=== PATIENT | male | born 1970 | race Two or more races ===

== ENCOUNTER 2022-12-25 23:40 | Inpatient (IN) | payer SELFPAY ==
[~2022-12-25] VITALS: Ht 177.8 cm; Wt 74.7 kg
[2022-12-26] VITALS (15 sets, daily range): BP systolic 142–155; BP diastolic 102–108; PULSE 99–130; RESP 15–27; TEMP 98; O2SAT 93–99
[2022-12-26] MEDS ORDERED: LORazepam 2MG/ML-1ML VIAL IV ONE (00:30)
[2022-12-26 00:46] LABS: Alanine Aminotransferase 117 U/L (7-40); Albumin 4.6 g/dL (3.2-4.8); Alkaline Phosphatase 91 U/L (46-116); Anion Gap 11.6 (5-15); Aspartate Aminotransferase 98 U/L (13-40); Bilirubin, Total 0.6 mg/dL (0.2-1.0); Calcium 8.8 mg/dL (8.5-10.1); Carbon Dioxide 21.4 mmol/L (20-30); Chloride 105 mmol/L (98-107); Glucose 138 mg/dL (74-106); Potassium 4.1 mmol/L (3.5-5.1); Sodium 138 mmol/L (136-145); Total Protein 7.5 g/dL (5.7-8.2)
[2022-12-26 00:47] LABS: Basophils # (auto) 0.1 10 ^3/uL (0-0.2); Basophils % (auto) 1.1 % (0.0-2.0); Eosinophils # (auto) 0.2 10 ^3/uL (0-0.8); Eosinophils % (auto) 2.5 % (0.0-7.0); Hematocrit 47.5 % (41.0-53.0); Hemoglobin 16.1 g/dL (13.5-17.5); Lymphocytes # (auto) 2.1 10 ^3/uL (0.4-5.4); Lymphocytes % (auto) 34.7 % (10.0-50.0); Mean Corpuscular Hemoglobin 36.9 pg (28.0-32.0); Mean Corpuscular Hgb Conc. 33.8 g/dL (32.0-36.0); Monocytes # (auto) 0.9 10 ^3/uL (0-1.3); Monocytes % (auto) 14.1 % (0.0-12.0); Neutrophils # (auto) 2.9 10 ^3/uL (1.6-8.6); Neutrophils % (auto) 47.6 % (37.0-80.0); Nucleated Red Blood Cells % 0.2 %; Red Blood Cells 4.36 10^6/uL (4.5-5.90); Red Cell Distribution Width 13.5 % (11.8-14.3); White Blood Cell 6.1 10^3/uL (4.4-10.8)
[2022-12-26 00:58] LABS: INR 1.02 (0.9-1.15); Partial Thromboplastin Time 28.1 SEC (24.5-34.5); Prothrombin Time 10.7 sec (9.3-11.8)
[2022-12-26 01:03] LABS: BUN/Creatinine Ratio 6.7 (10.0-20.0)
[2022-12-26 01:25] LABS: COVID19 ANTIGEN SOFIA FIA NEGATIVE (NEGATIVE)
[2022-12-26 01:33] LABS: Blood Urea Nitrogen < 5 mg/dL (9-23)
[2022-12-26] MEDS ORDERED: DexAMETHasone SOD PHOS 10MG/1ML VIAL INJ IV ONE (01:45)
[2022-12-26] MEDS: ALBUTEROL SULF 2.5 MG/0.5ML(0.5%) NEB SOLN NEB ONE (01:45)
[2022-12-26] MEDS ORDERED: AZITHROMYCIN 500MG/ 250ML 250 ML IV ONE ×2 (01:45→14:00)
[2022-12-26] MEDS: IPRATROPIUM BROM 0.5 MG/2.5ML INH SOL NEB ONE ×2 (01:45→02:37)
[2022-12-26] MEDS ORDERED: ALBUTEROL SULF 2.5 MG/0.5ML(0.5%) NEB SOLN NEB ONE (02:15)
[2022-12-26] MEDS ORDERED: LEVALBUTEROL HCL 1.25 MG/3 ML NEB NEB ONE (02:30)
[2022-12-26] MEDS ORDERED: SODIUM CHLORIDE 0.9% 1,000 ML IV ONE (03:12)
[2022-12-26] MEDS ORDERED: ADENOSINE 6 MG/2 ML INJ IV ONE (03:13)
[2022-12-26] MEDS ORDERED: LACTATED RINGER'S 1,000 ML IV ONE (03:15)
[2022-12-26] MEDS ORDERED: MAGNESIUM SULFATE 1GM/100ML 100 ML IV ONE (03:15)
[2022-12-26 04:09] LABS: Urine Bacteria NONE SEEN /hpf (None Seen); Urine Blood Negative /uL (Negative); Urine Clarity Clear (Clear); Urine Color Colorless (Yellow); Urine Protein, UAD Negative (Negative); Urine Specific Gravity 1.018 (1.001-1.035); Urine Urobilinogen Normal (Negative); Urine WBC <1 /hpf (0 - 3); Urine pH 5.5 (5.0-8.0)
[2022-12-26] MEDS ORDERED: InsuLIN R (HUMAN) 100 UNITS in SODIUM CHL 0.9% 99 ML IV SCH (05:00)
[2022-12-26] MEDS ORDERED: DEXTROSE (50%) 50ML SYRG IV PRN (05:00)
[2022-12-26 05:03] LABS: Base Excess -0.1 mmol/L (-2.0-2.0)
[2022-12-26] MEDS ORDERED: ALBUTEROL SULF 2.5 MG/0.5ML(0.5%) NEB SOLN NEB PRN (05:15)
[2022-12-26] MEDS ORDERED: ACETAMINOPHEN 325 MG TAB PO PRN (05:15)
[2022-12-26] MEDS ORDERED: NITROGLYCERIN 0.4 MG SL TAB SL PRN (05:15)
[2022-12-26] MEDS ORDERED: ONDANSETRON HCL 4 MG/2 ML VIAL IV PRN (05:15)
[2022-12-26] MEDS ORDERED: MORPHINE SULFATE INJ 2 MG/ml SYRG IV PRN (05:15)
[2022-12-26] MEDS ORDERED: ACCU-CHEK COMFORT CURVE STRIP VI SCH (06:00)
[2022-12-26] MEDS ORDERED: dilTIAZem 25 MG/5 ML VIAL IV ONE (06:45)
[2022-12-26] MEDS: guaiFENesin-DM 100/10mg/5ml SYR PO PRN ×2 (06:53→18:32)
[2022-12-26] MEDS ORDERED: METOPROLOL SUCCINATE XL 50 MG TAB PO SCH (10:00)
[2022-12-26] MEDS ORDERED: DexAMETHasone SOD PHOS 4 MG/1ML SDV INJ IV SCH (10:00)
[2022-12-26] MEDS: PANTOPRAZOLE 40 MG TAB PO SCH (10:14)
[2022-12-26] MEDS: ENOXAPARIN SOD 40 MG/0.4 ML SYRINGE SC SCH (10:14)
[2022-12-26] MEDS: IPRATROPIUM BROM 0.5 MG/2.5ML INH SOL NEB PRN ×2 (10:34→18:35)
[2022-12-26] MEDS ORDERED: IPRATROPIUM BROM 0.5 MG/2.5ML INH SOL NEB SCH (12:00)
[2022-12-26] MEDS ORDERED: HCTZ 25 MG TAB PO ONE (12:00)
[2022-12-26] MEDS ORDERED: ALBUTEROL SULF 2.5 MG/0.5ML(0.5%) NEB SOLN NEB SCH (12:00)
[2022-12-26] MEDS ORDERED: LOSARTAN POTASSIUM 50 MG TAB PO ONE (12:00)
[2022-12-26] MEDS ORDERED: ASPirin 81 mg TAB PO ONE (12:00)
[2022-12-26] MEDS ORDERED: hydrALAZINE HCL 20 MG/ML VL IV PRN (12:30)
[2022-12-26] MEDS: LEVALBUTEROL HCL 1.25 MG/3 ML NEB NEB SCH ×2 (12:34→18:34)
[2022-12-26] MEDS: LORazepam 2MG/ML-1ML VIAL IV PRN (12:45)
[2022-12-26 13:21] LABS: Amphetamine Screen, Urine Neg (NEGATIVE)
[2022-12-26 13:23] LABS: Barbiturate Scree,Urine Neg (NEGATIVE); Benzodiazephine Screen, Urine Neg (NEGATIVE); Cannabinoid Screen, Urine Pos (NEGATIVE); Cocaine Screen, Urine Neg (NEGATIVE); Opiate Scree,Urine Neg (NEGATIVE); Phencyclidine Screen, Urine Neg (NEGATIVE)
[2022-12-26 14:35] LABS: Magnesium 2.2 mg/dL (1.6-2.6)
[2022-12-26] MEDS: DexAMETHasone SOD PHOS 4 MG/1ML SDV INJ IV SCH ×2 (16:39→22:30)
[2022-12-26] MEDS ORDERED: AZITHROMYCIN 500MG/ 250ML 250 ML IV SCH (22:00)
[2022-12-26] MEDS ORDERED: ASCO500T11 PO (23:35)
[2022-12-26] MEDS ORDERED: PYRI1TAB10 PO (23:35)
[2022-12-26] MEDS ORDERED: CHOL20007 PO (23:35)
[2022-12-26] MEDS ORDERED: MAGN400T40 PO (23:35)
[2022-12-27] VITALS (18 sets, daily range): BP systolic 126–139; BP diastolic 90–99; PULSE 85–115; RESP 18–24; TEMP 97.2–98.3; O2SAT 92–100
[2022-12-27] MEDS: IPRATROPIUM BROM 0.5 MG/2.5ML INH SOL NEB PRN ×4 (00:17→17:55)
[2022-12-27] MEDS: LEVALBUTEROL HCL 1.25 MG/3 ML NEB NEB SCH ×5 (00:17→23:32)
[2022-12-27] MEDS: LORazepam 2MG/ML-1ML VIAL IV PRN ×2 (02:26→16:03)
[2022-12-27] MEDS: DexAMETHasone SOD PHOS 4 MG/1ML SDV INJ IV SCH ×4 (04:20→21:21)
[2022-12-27 06:16] LABS: Basophils # (auto) 0 10 ^3/uL (0-0.2); Basophils % (auto) 0.1 % (0.0-2.0); Eosinophils # (auto) 0 10 ^3/uL (0-0.8); Hematocrit 44.9 % (41.0-53.0); Hemoglobin 15.7 g/dL (13.5-17.5); Lymphocytes # (auto) 0.5 10 ^3/uL (0.4-5.4); Lymphocytes % (auto) 8.1 % (10.0-50.0); Mean Corpuscular Hemoglobin 37.1 pg (28.0-32.0); Mean Corpuscular Hgb Conc. 34.9 g/dL (32.0-36.0); Mean Corpuscular Volume 106.4 fL (80.0-100.0); Monocytes # (auto) 0.7 10 ^3/uL (0-1.3); Monocytes % (auto) 10.8 % (0.0-12.0); Neutrophils # (auto) 5.2 10 ^3/uL (1.6-8.6); Red Blood Cells 4.22 10^6/uL (4.5-5.90); Red Cell Distribution Width 13.6 % (11.8-14.3); White Blood Cell 6.4 10^3/uL (4.4-10.8)
[2022-12-27 06:30] LABS: Alanine Aminotransferase 75 U/L (7-40); Albumin 4.2 g/dL (3.2-4.8); Alkaline Phosphatase 79 U/L (46-116); Anion Gap 10.5 (5-15); Aspartate Aminotransferase 33 U/L (13-40); Carbon Dioxide 24.5 mmol/L (20-30); Chloride 99 mmol/L (98-107); Glucose 132 mg/dL (74-106); Potassium 3.7 mmol/L (3.5-5.1); Sodium 134 mmol/L (136-145)
[2022-12-27 06:31] LABS: Bilirubin, Total 0.9 mg/dL (0.2-1.0)
[2022-12-27 06:34] LABS: BUN/Creatinine Ratio 7.8 (10.0-20.0); Blood Urea Nitrogen < 5 mg/dL (9-23)
[2022-12-27] MEDS: AZITHROMYCIN 500MG/ 250ML 250 ML IV SCH (09:16)
[2022-12-27] MEDS: PANTOPRAZOLE 40 MG TAB PO SCH (09:17)
[2022-12-27] MEDS: ASPirin 81 mg TAB PO SCH (09:17)
[2022-12-27] MEDS: dilTIAZem 120MG ER CAP PO SCH (09:17)
[2022-12-27] MEDS: HCTZ 25 MG TAB PO SCH (09:18)
[2022-12-27] MEDS: LOSARTAN POTASSIUM 50 MG TAB PO SCH (09:18)
[2022-12-27] MEDS: ENOXAPARIN SOD 40 MG/0.4 ML SYRINGE SC SCH (09:19)
[2022-12-27 10:35] LABS: Hepatitis B Surface Antigen Negative (Negative)
[2022-12-27 10:56] LABS: Hepatitis C Antibody Negative (Negative)
[2022-12-27 13:01] LABS: Base Excess 1.8 mmol/L (-2.0-2.0)
[2022-12-28] VITALS (11 sets, daily range): BP systolic 114–132; BP diastolic 86–98; PULSE 92–124; RESP 15–24; TEMP 97.9–98.9; O2SAT 93–99
[2022-12-28] MEDS: IPRATROPIUM BROM 0.5 MG/2.5ML INH SOL NEB PRN ×3 (03:57→11:34)
[2022-12-28] MEDS: LEVALBUTEROL HCL 1.25 MG/3 ML NEB NEB SCH ×2 (03:57→11:34)
[2022-12-28] MEDS: guaiFENesin-DM 100/10mg/5ml SYR PO PRN (04:09)
[2022-12-28] MEDS: DexAMETHasone SOD PHOS 4 MG/1ML SDV INJ IV SCH ×3 (04:09→16:34)
[2022-12-28] MEDS: LORazepam 2MG/ML-1ML VIAL IV PRN ×2 (04:10→16:34)
[2022-12-28 07:00] LABS: Basophils # (auto) 0 10 ^3/uL (0-0.2); Basophils % (auto) 0.1 % (0.0-2.0); Eosinophils # (auto) 0 10 ^3/uL (0-0.8); Hemoglobin 16.3 g/dL (13.5-17.5); Lymphocytes # (auto) 0.5 10 ^3/uL (0.4-5.4); Lymphocytes % (auto) 7.4 % (10.0-50.0); Mean Corpuscular Hemoglobin 36.2 pg (28.0-32.0); Mean Corpuscular Hgb Conc. 33.9 g/dL (32.0-36.0); Mean Corpuscular Volume 106.8 fL (80.0-100.0); Monocytes # (auto) 0.6 10 ^3/uL (0-1.3); Monocytes % (auto) 8.2 % (0.0-12.0); Neutrophils # (auto) 6.2 10 ^3/uL (1.6-8.6); Neutrophils % (auto) 84.3 % (37.0-80.0); Red Blood Cells 4.49 10^6/uL (4.5-5.90); Red Cell Distribution Width 13.6 % (11.8-14.3); White Blood Cell 7.4 10^3/uL (4.4-10.8)
[2022-12-28 07:04] LABS: Calcium 9.5 mg/dL (8.7-10.4); Chloride 97 mmol/L (98-107); Potassium 3.6 mmol/L (3.5-5.1); Sodium 132 mmol/L (136-145)
[2022-12-28 07:05] LABS: Anion Gap 9.6 (5-15); Carbon Dioxide 25.4 mmol/L (20-30)
[2022-12-28 07:10] LABS: BUN/Creatinine Ratio 9.1 (10.0-20.0); Blood Urea Nitrogen 7 mg/dL (9-23); Glucose 144 mg/dL (74-106)
[2022-12-28] MEDS: AZITHROMYCIN 500MG/ 250ML 250 ML IV SCH (09:46)
[2022-12-28] MEDS: ENOXAPARIN SOD 40 MG/0.4 ML SYRINGE SC SCH (09:47)
[2022-12-28] MEDS: dilTIAZem 120MG ER CAP PO SCH (09:47)
[2022-12-28] MEDS: ASPirin 81 mg TAB PO SCH (09:48)
[2022-12-28] MEDS: PANTOPRAZOLE 40 MG TAB PO SCH (09:48)
[2022-12-28] MEDS: HCTZ 25 MG TAB PO SCH (09:48)
[2022-12-28] MEDS: LOSARTAN POTASSIUM 50 MG TAB PO SCH (09:48)
[2022-12-28] MEDS ORDERED: LOSA50TA46 PO (10:08)
[2022-12-28] MEDS ORDERED: PRED20TA2 PO (10:08)
[2022-12-28] MEDS ORDERED: DILT-29 PO (10:08)
[2022-12-28] MEDS ORDERED: AZIT500T66 PO (10:09)
[2022-12-28] MEDS ORDERED: IPR002IS NEB (12:01)
== END 2022-12-28 16:56 | disposition home or self-care (01) | DRG 189 ==
LOC: EDBD 23:40 → ER 23:45 → TELE 12-26 05:12 → TELE-CENTR 12-26 22:31
PROVIDERS: ADMIT Nurse Practitioner; ATTEND Internal Medicine Pulmonary Disease
DX: J96.21 Acute and chronic respiratory failure with hypoxia (principal); I47.1 Supraventricular tachycardia; J44.1 Chronic obstructive pulmonary disease with (acute) exacerbation; I10 Essential (primary) hypertension; I16.0 Hypertensive urgency; K76.0 Fatty (change of) liver, not elsewhere classified; F41.9 Anxiety disorder, unspecified; Z20.822 Contact with and (suspected) exposure to COVID-19; Z91.199 Patient's noncompliance with other medical treatment and regimen due to unspecified reason
CPT/HCPCS: 36415; 36600; 71045; 71275; 80048; 80053; 80061; 80307; 81001; 82805; 83036; 83735; 83880; 84443; 84484; 85025; 85610; 85730; 86803; 87340; 87426; 93005; 93306; 94640; 96365; 96367; 96372; 96375; 99291; G0378; J0153; J1100; J1815

== ENCOUNTER 2022-12-31 23:47 | Inpatient (IN) | payer SELFPAY ==
[~2022-12-31] VITALS: Ht 177.8 cm; Wt 80.9 kg
[~2022-12-31 23:47] MED LIST: ASCO500T11 PO; AZIT500T66 PO; CHOL20007 PO; DILT-29 PO; IPR002IS NEB; LOSA50TA46 PO; MAGN400T40 PO; PRED20TA2 PO; PYRI1TAB10 PO
[2023-01-01] VITALS (7 sets, daily range): BP systolic 114–129; BP diastolic 84–93; PULSE 77–122; RESP 18–23; TEMP 97.9–99.9; O2SAT 89–94
[2023-01-01] MEDS ORDERED: IPRATROPIUM BROM 0.5 MG/2.5ML INH SOL NEB ONE (00:15)
[2023-01-01] MEDS ORDERED: ALBUTEROL SULF 2.5 MG/0.5ML(0.5%) NEB SOLN NEB ONE (00:15)
[2023-01-01] MEDS ORDERED: methylPREDNISolone SOD SUCC 40 MG/ML VL IV ONE (00:15)
[2023-01-01] MEDS ORDERED: VANCOMYCIN 1GM/250ML 250 ML IV ONE (00:15)
[2023-01-01] MEDS ORDERED: CEFEPIME 1GM/ 50ML 50 ML IV ONE (00:15)
[2023-01-01] MEDS ORDERED: LEVALBUTEROL HCL 1.25 MG/3 ML NEB NEB ONE (01:00)
[2023-01-01 01:51] LABS: Basophils # (auto) 0 10 ^3/uL (0-0.2); Eosinophils # (auto) 0 10 ^3/uL (0-0.8); Lymphocytes # (auto) 1.4 10 ^3/uL (0.4-5.4); Monocytes # (auto) 1.3 10 ^3/uL (0-1.3); Neutrophils # (auto) 6.6 10 ^3/uL (1.6-8.6); Red Cell Distribution Width 12.8 % (11.8-14.3)
[2023-01-01 01:54] LABS: Eosinophils % (auto) 0.1 % (0.0-7.0); Hematocrit 45.8 % (41.0-53.0); Hemoglobin 15.9 g/dL (13.5-17.5); Lymphocytes % (auto) 14.9 % (10.0-50.0); Mean Corpuscular Hgb Conc. 34.6 g/dL (32.0-36.0); Mean Corpuscular Volume 106.8 fL (80.0-100.0); Monocytes % (auto) 13.7 % (0.0-12.0); Neutrophils % (auto) 71.3 % (37.0-80.0); Nucleated Red Blood Cells % 0.1 %; Red Blood Cells 4.29 10^6/uL (4.5-5.90); White Blood Cell 9.2 10^3/uL (4.4-10.8)
[2023-01-01] MEDS ORDERED: LORazepam 2MG/ML-1ML VIAL IV ONE (02:00)
[2023-01-01 02:11] LABS: INR 1.01 (0.9-1.15); Partial Thromboplastin Time 23.2 SEC (24.5-34.5); Prothrombin Time 10.6 sec (9.3-11.8)
[2023-01-01 02:13] LABS: Alanine Aminotransferase 176 U/L (7-40); Albumin 4.3 g/dL (3.2-4.8); Alkaline Phosphatase 69 U/L (46-116); Anion Gap 10.3 (5-15); Aspartate Aminotransferase 191 U/L (13-40); BUN/Creatinine Ratio 10.6 (10.0-20.0); Blood Urea Nitrogen 11 mg/dL (9-23); Calcium 9.1 mg/dL (8.7-10.4); Carbon Dioxide 20.7 mmol/L (20-30); Chloride 97 mmol/L (98-107); Glucose 175 mg/dL (74-106); Lactic Acid w/Reflex 2.1 mmol/L (0.4-2.0); Sodium 128 mmol/L (136-145)
[2023-01-01 02:14] LABS: Bilirubin, Total 0.7 mg/dL (0.2-1.0); Total Protein 6.8 g/dL (5.7-8.2)
[2023-01-01] MEDS ORDERED: ONDANSETRON HCL 4 MG/2 ML VIAL IV PRN (03:15)
[2023-01-01] MEDS ORDERED: NITROGLYCERIN 0.4 MG SL TAB SL PRN (03:15)
[2023-01-01] MEDS ORDERED: MORPHINE SULFATE INJ 2 MG/ml SYRG IV PRN (03:15)
[2023-01-01] MEDS ORDERED: IPRATROPIUM BROM 0.5 MG/2.5ML INH SOL NEB PRN (03:15)
[2023-01-01] MEDS ORDERED: ACETAMINOPHEN 325 MG TAB PO PRN (03:15)
[2023-01-01] MEDS ORDERED: TEMAZEPAM 15 MG CAP PO PRN (03:15)
[2023-01-01] MEDS: methylPREDNISolone SOD SUCC 40 MG/ML VL IV SCH ×2 (09:44→22:10)
[2023-01-01] MEDS: cefTRIAXone 1GM/50ML D5W 50 ML IV SCH (09:44)
[2023-01-01] MEDS: LOSARTAN POTASSIUM 50 MG TAB PO SCH (09:45)
[2023-01-01] MEDS: ENOXAPARIN SOD 40 MG/0.4 ML SYRINGE SC SCH (09:45)
[2023-01-01] MEDS: dilTIAZem 120MG ER CAP PO SCH (09:46)
[2023-01-01] MEDS ORDERED: PANTOPRAZOLE 40 MG TAB PO SCH (10:00)
[2023-01-01] MEDS ORDERED: LORazepam 2MG/ML-1ML VIAL ONE (15:55)
[2023-01-01] MEDS: LORazepam 2MG/ML-1ML VIAL IV PRN ×2 (16:09→22:11)
[2023-01-01] MEDS: LEVALBUTEROL HCL 1.25 MG/3 ML NEB NEB PRN (20:06)
[2023-01-01] MEDS: IPRATROPIUM BROM 0.5 MG/2.5ML INH SOL NEB PRN (20:07)
[2023-01-02] VITALS (12 sets, daily range): BP systolic 109–126; BP diastolic 75–93; PULSE 78–100; RESP 18–22; TEMP 97.9–98.6; O2SAT 88–95
[2023-01-02] MEDS: LORazepam 2MG/ML-1ML VIAL IV PRN ×4 (05:02→23:41)
[2023-01-02 06:58] LABS: Basophils # (auto) 0 10 ^3/uL (0-0.2); Eosinophils # (auto) 0 10 ^3/uL (0-0.8); Lymphocytes # (auto) 0.3 10 ^3/uL (0.4-5.4); Mean Corpuscular Hgb Conc. 34.6 g/dL (32.0-36.0); Monocytes # (auto) 0.8 10 ^3/uL (0-1.3); Nucleated Red Blood Cells % 0.1 %; Red Blood Cells 3.95 10^6/uL (4.5-5.90); Red Cell Distribution Width 12.7 % (11.8-14.3)
[2023-01-02 07:01] LABS: Basophils % (auto) 0.1 % (0.0-2.0); Hematocrit 42.1 % (41.0-53.0); Hemoglobin 14.6 g/dL (13.5-17.5); Lymphocytes % (auto) 3.1 % (10.0-50.0); Mean Corpuscular Hemoglobin 36.9 pg (28.0-32.0); Mean Corpuscular Volume 106.5 fL (80.0-100.0); Monocytes % (auto) 7.3 % (0.0-12.0); Neutrophils # (auto) 9.3 10 ^3/uL (1.6-8.6); Neutrophils % (auto) 89.5 % (37.0-80.0); White Blood Cell 10.4 10^3/uL (4.4-10.8)
[2023-01-02 07:15] LABS: Alanine Aminotransferase 133 U/L (7-40); Albumin 3.9 g/dL (3.2-4.8); Alkaline Phosphatase 55 U/L (46-116); Anion Gap 5.7 (5-15); Aspartate Aminotransferase 42 U/L (13-40); BUN/Creatinine Ratio 13.4 (10.0-20.0); Bilirubin, Total 1.1 mg/dL (0.2-1.0); Blood Urea Nitrogen 11 mg/dL (9-23); Calcium 8.6 mg/dL (8.7-10.4); Carbon Dioxide 26.3 mmol/L (20-30); Chloride 101 mmol/L (98-107); Glucose 160 mg/dL (74-106); Potassium 3.7 mmol/L (3.5-5.1); Total Protein 6.2 g/dL (5.7-8.2)
[2023-01-02] MEDS: LEVALBUTEROL HCL 1.25 MG/3 ML NEB NEB PRN ×2 (07:17→18:27)
[2023-01-02] MEDS: IPRATROPIUM BROM 0.5 MG/2.5ML INH SOL NEB PRN ×2 (07:17→18:27)
[2023-01-02 07:29] LABS: Sodium 133 mmol/L (136-145)
[2023-01-02] MEDS: methylPREDNISolone SOD SUCC 40 MG/ML VL IV SCH ×2 (11:07→22:58)
[2023-01-02] MEDS: cefTRIAXone 1GM/50ML D5W 50 ML IV SCH (11:07)
[2023-01-02] MEDS: ENOXAPARIN SOD 40 MG/0.4 ML SYRINGE SC SCH (11:07)
[2023-01-02] MEDS: dilTIAZem 120MG ER CAP PO SCH (11:08)
[2023-01-02] MEDS: LOSARTAN POTASSIUM 50 MG TAB PO SCH (11:09)
[2023-01-02] MEDS ORDERED: AZITHROMYCIN 500MG/ 250ML 250 ML IV ONE (12:00)
[2023-01-02] MEDS: guaiFENesin-DM 100/10mg/5ml SYR PO PRN ×2 (14:12→22:57)
[2023-01-03] VITALS (18 sets, daily range): BP systolic 109–133; BP diastolic 70–107; PULSE 77–107; RESP 18–21; TEMP 97.9–98.3; O2SAT 89–99
[2023-01-03] MEDS: IPRATROPIUM BROM 0.5 MG/2.5ML INH SOL NEB PRN ×2 (05:46→16:15)
[2023-01-03] MEDS: LEVALBUTEROL HCL 1.25 MG/3 ML NEB NEB PRN ×2 (05:47→16:15)
[2023-01-03 06:23] LABS: Basophils # (auto) 0 10 ^3/uL (0-0.2); Eosinophils # (auto) 0 10 ^3/uL (0-0.8)
[2023-01-03 06:26] LABS: Hematocrit 44.2 % (41.0-53.0); Hemoglobin 15.1 g/dL (13.5-17.5); Lymphocytes # (auto) 0.9 10 ^3/uL (0.4-5.4); Lymphocytes % (auto) 8.1 % (10.0-50.0); Mean Corpuscular Hemoglobin 36.6 pg (28.0-32.0); Mean Corpuscular Hgb Conc. 34.3 g/dL (32.0-36.0); Mean Corpuscular Volume 106.8 fL (80.0-100.0); Monocytes # (auto) 0.8 10 ^3/uL (0-1.3); Monocytes % (auto) 7.1 % (0.0-12.0); Neutrophils # (auto) 9.1 10 ^3/uL (1.6-8.6); Neutrophils % (auto) 84.8 % (37.0-80.0); Nucleated Red Blood Cells % 0.1 %; Red Blood Cells 4.14 10^6/uL (4.5-5.90); Red Cell Distribution Width 12.7 % (11.8-14.3); White Blood Cell 10.8 10^3/uL (4.4-10.8)
[2023-01-03] MEDS: LORazepam 2MG/ML-1ML VIAL IV PRN ×3 (06:31→18:32)
[2023-01-03 06:42] LABS: Alanine Aminotransferase 132 U/L (7-40); Anion Gap 5.7 (5-15); BUN/Creatinine Ratio 11.5 (10.0-20.0); Blood Urea Nitrogen 11 mg/dL (9-23); Calcium 8.9 mg/dL (8.7-10.4); Carbon Dioxide 25.3 mmol/L (20-30); Chloride 102 mmol/L (98-107); Glucose 152 mg/dL (74-106); Magnesium 2.6 mg/dL (1.6-2.6); Potassium 3.9 mmol/L (3.5-5.1); Sodium 133 mmol/L (136-145)
[2023-01-03 06:43] LABS: Aspartate Aminotransferase 39 U/L (13-40)
[2023-01-03 06:44] LABS: Bilirubin, Total 0.9 mg/dL (0.2-1.0); Total Protein 6.5 g/dL (5.7-8.2)
[2023-01-03 06:58] LABS: Alkaline Phosphatase 58 U/L (46-116)
[2023-01-03] MEDS: dilTIAZem 120MG ER CAP PO SCH (08:29)
[2023-01-03] MEDS: AZITHROMYCIN 250 MG TAB PO SCH (08:29)
[2023-01-03] MEDS: methylPREDNISolone SOD SUCC 40 MG/ML VL IV SCH ×2 (08:30→22:54)
[2023-01-03] MEDS: LOSARTAN POTASSIUM 50 MG TAB PO SCH (08:30)
[2023-01-03] MEDS: ENOXAPARIN SOD 40 MG/0.4 ML SYRINGE SC SCH (08:31)
[2023-01-03 08:36] LABS: Base Excess 3.5 mmol/L (-2.0-2.0)
[2023-01-03] MEDS ORDERED: MAGNESIUM SULFATE 1GM/100ML 100 ML IV ONE (13:00)
[2023-01-03] MEDS: IPRATROPIUM BROM 0.5 MG/2.5ML INH SOL NEB SCH (18:11)
[2023-01-03] MEDS: LEVALBUTEROL HCL 1.25 MG/3 ML NEB NEB SCH (18:12)
[2023-01-03] MEDS: guaiFENesin-DM 100/10mg/5ml SYR PO PRN (23:01)
[2023-01-04] VITALS (39 sets, daily range): BP systolic 101–127; BP diastolic 64–88; PULSE 75–128; RESP 12–24; TEMP 98.2–98.7; O2SAT 87–100
[2023-01-04] MEDS: LEVALBUTEROL HCL 1.25 MG/3 ML NEB NEB SCH ×4 (00:22→18:47)
[2023-01-04] MEDS: IPRATROPIUM BROM 0.5 MG/2.5ML INH SOL NEB SCH ×4 (00:22→18:47)
[2023-01-04] MEDS: LORazepam 2MG/ML-1ML VIAL IV PRN ×4 (00:52→21:40)
[2023-01-04 05:30] LABS: Alanine Aminotransferase 135 U/L (7-40); Albumin 3.8 g/dL (3.2-4.8); Alkaline Phosphatase 49 U/L (46-116); Anion Gap 4.3 (5-15); Aspartate Aminotransferase 43 U/L (13-40); BUN/Creatinine Ratio 12.4 (10.0-20.0); Basophils # (auto) 0 10 ^3/uL (0-0.2); Bilirubin, Total 0.7 mg/dL (0.2-1.0); Blood Urea Nitrogen 11 mg/dL (9-23); Calcium 8.6 mg/dL (8.7-10.4); Carbon Dioxide 27.7 mmol/L (20-30); Chloride 103 mmol/L (98-107); Eosinophils # (auto) 0 10 ^3/uL (0-0.8); Glucose 155 mg/dL (74-106); Lactic Acid w/Reflex 2.2 mmol/L (0.4-2.0); Lymphocytes # (auto) 0.3 10 ^3/uL (0.4-5.4); Magnesium 2.5 mg/dL (1.6-2.6); Monocytes # (auto) 0.5 10 ^3/uL (0-1.3); Potassium 4.3 mmol/L (3.5-5.1); Sodium 135 mmol/L (136-145)
[2023-01-04 05:33] LABS: Hematocrit 41.2 % (41.0-53.0); Hemoglobin 14.4 g/dL (13.5-17.5); Lymphocytes % (auto) 3.7 % (10.0-50.0); Mean Corpuscular Hemoglobin 37.4 pg (28.0-32.0); Mean Corpuscular Hgb Conc. 34.8 g/dL (32.0-36.0); Mean Corpuscular Volume 107.3 fL (80.0-100.0); Monocytes % (auto) 6.4 % (0.0-12.0); Neutrophils # (auto) 7.6 10 ^3/uL (1.6-8.6); Neutrophils % (auto) 89.9 % (37.0-80.0); Red Blood Cells 3.85 10^6/uL (4.5-5.90); Red Cell Distribution Width 12.6 % (11.8-14.3); White Blood Cell 8.4 10^3/uL (4.4-10.8)
[2023-01-04] MEDS: ENOXAPARIN SOD 40 MG/0.4 ML SYRINGE SC SCH (08:14)
[2023-01-04] MEDS: methylPREDNISolone SOD SUCC 40 MG/ML VL IV SCH ×2 (08:14→21:40)
[2023-01-04] MEDS: dilTIAZem 120MG ER CAP PO SCH (08:15)
[2023-01-04] MEDS: LOSARTAN POTASSIUM 50 MG TAB PO SCH (08:15)
[2023-01-04] MEDS: AZITHROMYCIN 250 MG TAB PO SCH (08:16)
[2023-01-04 08:42] LABS: COVID19 ANTIGEN SOFIA FIA NEGATIVE (NEGATIVE)
[2023-01-04 10:59] LABS: Rapid Influenza A Negative (Negative); Rapid Influenza B Negative (Negative)
[2023-01-04] MEDS: guaiFENesin-DM 100/10mg/5ml SYR PO PRN (14:45)
[2023-01-05] VITALS (33 sets, daily range): BP systolic 94–127; BP diastolic 61–90; PULSE 70–125; RESP 12–24; TEMP 98.1–98.9; O2SAT 92–99
[2023-01-05] MEDS: IPRATROPIUM BROM 0.5 MG/2.5ML INH SOL NEB SCH ×5 (00:36→23:22)
[2023-01-05] MEDS: LEVALBUTEROL HCL 1.25 MG/3 ML NEB NEB SCH ×5 (00:36→23:22)
[2023-01-05] MEDS: LORazepam 2MG/ML-1ML VIAL IV PRN ×2 (05:02→11:30)
[2023-01-05 05:32] LABS: Basophils # (auto) 0 10 ^3/uL (0-0.2); Basophils % (auto) 0.1 % (0.0-2.0); Eosinophils # (auto) 0 10 ^3/uL (0-0.8); Hemoglobin 14.8 g/dL (13.5-17.5); Lymphocytes # (auto) 0.5 10 ^3/uL (0.4-5.4); Lymphocytes % (auto) 4.9 % (10.0-50.0)
[2023-01-05 05:37] LABS: Mean Corpuscular Hemoglobin 37.4 pg (28.0-32.0); Mean Corpuscular Hgb Conc. 35.2 g/dL (32.0-36.0); Mean Corpuscular Volume 106.1 fL (80.0-100.0); Monocytes # (auto) 0.6 10 ^3/uL (0-1.3); Monocytes % (auto) 5.8 % (0.0-12.0); Neutrophils # (auto) 8.8 10 ^3/uL (1.6-8.6); Neutrophils % (auto) 89.2 % (37.0-80.0); Red Blood Cells 3.96 10^6/uL (4.5-5.90); Red Cell Distribution Width 12.7 % (11.8-14.3); White Blood Cell 9.8 10^3/uL (4.4-10.8)
[2023-01-05 05:42] LABS: Alanine Aminotransferase 162 U/L (7-40); Alkaline Phosphatase 44 U/L (46-116); Blood Urea Nitrogen 16 mg/dL (9-23); Calcium 8.7 mg/dL (8.5-10.1); Chloride 105 mmol/L (98-107); Glucose 147 mg/dL (74-106); Potassium 4.4 mmol/L (3.5-5.1); Sodium 136 mmol/L (136-145)
[2023-01-05 05:43] LABS: Albumin 3.8 g/dL (3.2-4.8); Aspartate Aminotransferase 50 U/L (13-40); Bilirubin, Total 0.6 mg/dL (0.2-1.0)
[2023-01-05] MEDS: methylPREDNISolone SOD SUCC 40 MG/ML VL IV SCH ×2 (07:59→22:04)
[2023-01-05] MEDS: ENOXAPARIN SOD 40 MG/0.4 ML SYRINGE SC SCH (07:59)
[2023-01-05] MEDS: dilTIAZem 120MG ER CAP PO SCH (08:00)
[2023-01-05] MEDS: AZITHROMYCIN 250 MG TAB PO SCH (08:00)
[2023-01-05] MEDS: LOSARTAN POTASSIUM 50 MG TAB PO SCH (08:01)
[2023-01-05] MEDS: guaiFENesin-DM 100/10mg/5ml SYR PO PRN (09:43)
[2023-01-05] MEDS ORDERED: cefTRIAXone 1GM/50ML D5W 50 ML IV ONE (15:00)
[2023-01-05] MEDS: LORazepam 0.5 MG TAB PO PRN (18:01)
[2023-01-06] VITALS (13 sets, daily range): BP systolic 116–135; BP diastolic 82–99; PULSE 76–107; RESP 16–20; TEMP 98.3–99.4; O2SAT 94–100
[2023-01-06] MEDS: LORazepam 0.5 MG TAB PO PRN ×4 (00:20→21:30)
[2023-01-06] MEDS: LEVALBUTEROL HCL 1.25 MG/3 ML NEB NEB SCH ×3 (06:44→19:14)
[2023-01-06] MEDS: IPRATROPIUM BROM 0.5 MG/2.5ML INH SOL NEB SCH ×3 (06:45→19:14)
[2023-01-06] MEDS: dilTIAZem 120MG ER CAP PO SCH (08:12)
[2023-01-06] MEDS: LOSARTAN POTASSIUM 50 MG TAB PO SCH (08:13)
[2023-01-06] MEDS: methylPREDNISolone SOD SUCC 40 MG/ML VL IV SCH ×2 (08:14→21:29)
[2023-01-06] MEDS: AZITHROMYCIN 250 MG TAB PO SCH (08:14)
[2023-01-06] MEDS: cefTRIAXone 1GM/50ML D5W 50 ML IV SCH (08:14)
[2023-01-06] MEDS: ENOXAPARIN SOD 40 MG/0.4 ML SYRINGE SC SCH (08:14)
[2023-01-06] MEDS: METOPROLOL SUCCINATE XL 50 MG TAB PO SCH (16:03)
[2023-01-07] VITALS (16 sets, daily range): BP systolic 100–122; BP diastolic 66–97; PULSE 74–104; RESP 16–20; TEMP 97.9–98.8; O2SAT 93–99
[2023-01-07] MEDS: LEVALBUTEROL HCL 1.25 MG/3 ML NEB NEB SCH ×4 (00:44→20:09)
[2023-01-07] MEDS: IPRATROPIUM BROM 0.5 MG/2.5ML INH SOL NEB SCH ×4 (00:44→20:09)
[2023-01-07] MEDS: ENOXAPARIN SOD 40 MG/0.4 ML SYRINGE SC SCH (08:55)
[2023-01-07] MEDS: cefTRIAXone 1GM/50ML D5W 50 ML IV SCH (08:55)
[2023-01-07] MEDS: methylPREDNISolone SOD SUCC 40 MG/ML VL IV SCH ×2 (08:56→21:38)
[2023-01-07] MEDS: dilTIAZem 120MG ER CAP PO SCH (08:57)
[2023-01-07] MEDS: LOSARTAN POTASSIUM 50 MG TAB PO SCH (08:58)
[2023-01-07] MEDS: METOPROLOL SUCCINATE XL 50 MG TAB PO SCH (08:58)
[2023-01-07] MEDS: LORazepam 0.5 MG TAB PO PRN ×2 (08:59→21:38)
[2023-01-07] MEDS: AZITHROMYCIN 250 MG TAB PO SCH (08:59)
[2023-01-07] MEDS ORDERED: IOHEXOL 350 MG/ML 100ML IJ ONE (09:39)
[2023-01-08] VITALS (18 sets, daily range): BP systolic 103–109; BP diastolic 70–97; PULSE 68–97; RESP 16–18; TEMP 98.3–98.8; O2SAT 94–99
[2023-01-08] MEDS: LEVALBUTEROL HCL 1.25 MG/3 ML NEB NEB SCH ×4 (00:37→19:26)
[2023-01-08] MEDS: IPRATROPIUM BROM 0.5 MG/2.5ML INH SOL NEB SCH ×4 (00:37→19:25)
[2023-01-08] MEDS: cefTRIAXone 1GM/50ML D5W 50 ML IV SCH (08:39)
[2023-01-08] MEDS: methylPREDNISolone SOD SUCC 40 MG/ML VL IV SCH ×2 (10:32→21:25)
[2023-01-08] MEDS: AZITHROMYCIN 250 MG TAB PO SCH (10:33)
[2023-01-08] MEDS: METOPROLOL SUCCINATE XL 50 MG TAB PO SCH (10:34)
[2023-01-08] MEDS: LOSARTAN POTASSIUM 50 MG TAB PO SCH (10:34)
[2023-01-08] MEDS: ENOXAPARIN SOD 40 MG/0.4 ML SYRINGE SC SCH (10:35)
[2023-01-08] MEDS: LORazepam 0.5 MG TAB PO PRN ×2 (10:43→21:25)
[2023-01-08] MEDS: dilTIAZem 120MG ER CAP PO SCH (14:38)
[2023-01-08] MEDS: BUDESONIDE (INHALATION) 0.5 MG/2 ML NEB NEB SCH (19:26)
[2023-01-09] VITALS (17 sets, daily range): BP systolic 93–123; BP diastolic 63–89; PULSE 64–97; RESP 16–20; TEMP 98.2–98.7; O2SAT 94–100
[2023-01-09] MEDS: IPRATROPIUM BROM 0.5 MG/2.5ML INH SOL NEB SCH ×4 (00:48→19:20)
[2023-01-09] MEDS: LEVALBUTEROL HCL 1.25 MG/3 ML NEB NEB SCH ×4 (00:48→19:20)
[2023-01-09 06:38] LABS: Basophils # (auto) 0 10 ^3/uL (0-0.2); Basophils % (auto) 0.1 % (0.0-2.0); Eosinophils # (auto) 0 10 ^3/uL (0-0.8); Hematocrit 40.1 % (41.0-53.0); Lymphocytes # (auto) 0.4 10 ^3/uL (0.4-5.4); Monocytes # (auto) 0.8 10 ^3/uL (0-1.3)
[2023-01-09 06:42] LABS: Lymphocytes % (auto) 3.8 % (10.0-50.0); Mean Corpuscular Hemoglobin 36.9 pg (28.0-32.0); Mean Corpuscular Hgb Conc. 34.9 g/dL (32.0-36.0); Mean Corpuscular Volume 105.6 fL (80.0-100.0); Neutrophils % (auto) 88.1 % (37.0-80.0); Red Cell Distribution Width 12.5 % (11.8-14.3); White Blood Cell 10.3 10^3/uL (4.4-10.8)
[2023-01-09 06:52] LABS: Chloride 104 mmol/L (98-107); Potassium 4.3 mmol/L (3.5-5.1); Sodium 134 mmol/L (136-145)
[2023-01-09 06:53] LABS: Anion Gap 6.2 (5-15); Calcium 8.3 mg/dL (8.5-10.1); Carbon Dioxide 23.8 mmol/L (20-30)
[2023-01-09 06:58] LABS: BUN/Creatinine Ratio 22.8 (10.0-20.0); Blood Urea Nitrogen 18 mg/dL (9-23); Glucose 131 mg/dL (74-106)
[2023-01-09] MEDS: BUDESONIDE (INHALATION) 0.5 MG/2 ML NEB NEB SCH ×2 (07:03→19:20)
[2023-01-09] MEDS: cefTRIAXone 1GM/50ML D5W 50 ML IV SCH (08:10)
[2023-01-09] MEDS: methylPREDNISolone SOD SUCC 40 MG/ML VL IV SCH ×2 (09:47→21:46)
[2023-01-09] MEDS: LOSARTAN POTASSIUM 50 MG TAB PO SCH (09:48)
[2023-01-09] MEDS: dilTIAZem 120MG ER CAP PO SCH (09:48)
[2023-01-09] MEDS: ENOXAPARIN SOD 40 MG/0.4 ML SYRINGE SC SCH (09:49)
[2023-01-09] MEDS: METOPROLOL SUCCINATE XL 50 MG TAB PO SCH (09:49)
[2023-01-09] MEDS: LORazepam 0.5 MG TAB PO PRN ×2 (09:58→21:47)
[2023-01-10] VITALS (15 sets, daily range): BP systolic 98–121; BP diastolic 61–90; PULSE 60–84; RESP 16–20; TEMP 98.1–99.8; O2SAT 94–100
[2023-01-10] MEDS: LEVALBUTEROL HCL 1.25 MG/3 ML NEB NEB SCH ×3 (00:35→11:27)
[2023-01-10] MEDS: IPRATROPIUM BROM 0.5 MG/2.5ML INH SOL NEB SCH ×3 (00:35→11:27)
[2023-01-10] MEDS: BUDESONIDE (INHALATION) 0.5 MG/2 ML NEB NEB SCH (06:06)
[2023-01-10] MEDS: cefTRIAXone 1GM/50ML D5W 50 ML IV SCH (08:40)
[2023-01-10] MEDS: methylPREDNISolone SOD SUCC 40 MG/ML VL IV SCH (10:43)
[2023-01-10] MEDS: LORazepam 0.5 MG TAB PO PRN (10:43)
[2023-01-10] MEDS: ENOXAPARIN SOD 40 MG/0.4 ML SYRINGE SC SCH (10:44)
[2023-01-10] MEDS: METOPROLOL SUCCINATE XL 50 MG TAB PO SCH (10:56)
[2023-01-10] MEDS: LOSARTAN POTASSIUM 50 MG TAB PO SCH (10:56)
[2023-01-10] MEDS: dilTIAZem 120MG ER CAP PO SCH (10:57)
[2023-01-10] MEDS ORDERED: METO-6 PO (11:15)
[2023-01-10] MEDS ORDERED: LEVA1.2518 NEB (11:15)
[2023-01-10] MEDS ORDERED: BUDE1AER4 IN (11:15)
== END 2023-01-10 15:25 | disposition home or self-care (01) | DRG 871 ==
LOC: EDBD 23:47 → ER 01-01 → TELE 01-01 03:12 → TELE-CENTR 01-01 23:59 → DOU IN ICU 01-03 23:42 → TELE-CENTR 01-05 23:23
PROVIDERS: ADMIT Nurse Practitioner; ATTEND Nurse Practitioner Acute Care
PROC: 5A09357 Assistance with Respiratory Ventilation, Less than 24 Consecutive Hours, Continuous Positive Airway Pressure (ICD-10-PCS; principal; 2023-01-03)
DX: A41.9 Sepsis, unspecified organism (principal); J18.9 Pneumonia, unspecified organism; J96.21 Acute and chronic respiratory failure with hypoxia; J44.1 Chronic obstructive pulmonary disease with (acute) exacerbation; E87.20 Acidosis, unspecified; J44.0 Chronic obstructive pulmonary disease with (acute) lower respiratory infection; J98.11 Atelectasis; E87.6 Hypokalemia; I10 Essential (primary) hypertension; G47.00 Insomnia, unspecified; R74.01 Elevation of levels of liver transaminase levels; Z20.822 Contact with and (suspected) exposure to COVID-19; E66.9 Obesity, unspecified; F06.4 Anxiety disorder due to known physiological condition; F12.10 Cannabis abuse, uncomplicated; Z68.25 Body mass index [BMI] 25.0-25.9, adult; Z82.49 Family history of ischemic heart disease and other diseases of the circulatory system; Z88.8 Allergy status to other drugs, medicaments and biological substances; Z87.891 Personal history of nicotine dependence
CPT/HCPCS: 36415; 36600; 71045; 71260; 74177; 80048; 80053; 82805; 83605; 83735; 83880; 84443; 84484; 85025; 85379; 85610; 85730; 87040; 87081; 87426; 87804; 93970; 94640; 94660; 96365; 96368; 96375; 97110; 97116; 97163; 97530; 99291; G0378; J0696

== ENCOUNTER 2023-03-11 21:58 | Emergency (ER) | payer MEDICAID ==
[~2023-03-11] VITALS: Ht 177.8 cm; Wt 81.0 kg
[~2023-03-11 21:58] MED LIST changes: -AZIT500T66 PO; +BUDE1AER4 IN; -IPR002IS NEB; +LEVA1.2518 NEB; +METO-6 PO
[2023-03-12] MEDS ORDERED: HALOPERIDOL LACTATE 5 MG/ML INJ VIAL IM ONE (02:00)
[2023-03-12] MEDS ORDERED: diphenhdrAMINE HCL 50 MG/1 ML VL IM ONE (02:00)
[2023-03-12 02:24] LABS: Basophils # (auto) 0.1 10 ^3/uL (0-0.2); Eosinophils # (auto) 0 10 ^3/uL (0-0.8); Eosinophils % (auto) 0.2 % (0.0-7.0); Lymphocytes # (auto) 2.2 10 ^3/uL (0.4-5.4); Neutrophils # (auto) 7.9 10 ^3/uL (1.6-8.6); Nucleated Red Blood Cells % 0.1 %; White Blood Cell 11.6 10^3/uL (4.4-10.8)
[2023-03-12 02:26] LABS: Basophils % (auto) 0.8 % (0.0-2.0); Hematocrit 48.9 % (41.0-53.0); Hemoglobin 16.8 g/dL (13.5-17.5); Lymphocytes % (auto) 18.6 % (10.0-50.0); Mean Corpuscular Hemoglobin 34.6 pg (28.0-32.0); Mean Corpuscular Hgb Conc. 34.4 g/dL (32.0-36.0); Mean Corpuscular Volume 100.6 fL (80.0-100.0); Monocytes # (auto) 1.5 10 ^3/uL (0-1.3); Monocytes % (auto) 12.7 % (0.0-12.0); Neutrophils % (auto) 67.7 % (37.0-80.0); Red Blood Cells 4.86 10^6/uL (4.5-5.90)
[2023-03-12 02:39] LABS: Alanine Aminotransferase 16 U/L (7-40); Alkaline Phosphatase 75 U/L (46-116); Anion Gap 16 (5-15); Aspartate Aminotransferase 23 U/L (13-40); BUN/Creatinine Ratio 6.9 (10.0-20.0); Blood Urea Nitrogen 7 mg/dL (9-23); Calcium 9.8 mg/dL (8.7-10.4); Carbon Dioxide 18 mmol/L (20-30); Chloride 103 mmol/L (98-107); Glucose 98 mg/dL (74-106); Lipase 46 U/L (12-53); Magnesium 2.2 mg/dL (1.6-2.6); Potassium 3.7 mmol/L (3.5-5.1); Sodium 137 mmol/L (136-145)
[2023-03-12 02:40] LABS: Albumin 4.7 g/dL (3.2-4.8); Bilirubin, Total 2.2 mg/dL (0.2-1.0); Total Protein 7.5 g/dL (5.7-8.2)
[2023-03-12 02:47] LABS: Salicylate < 3.0 mg/dL (2.8-20.0)
[2023-03-12 04:17] LABS: Amphetamine Screen, Urine Neg (NEGATIVE); Barbiturate Scree,Urine Neg (NEGATIVE); Benzodiazephine Screen, Urine Pos (NEGATIVE); Cocaine Screen, Urine Neg (NEGATIVE)
[2023-03-12 04:18] LABS: Cannabinoid Screen, Urine Pos (NEGATIVE); Opiate Scree,Urine Neg (NEGATIVE); Phencyclidine Screen, Urine Neg (NEGATIVE)
[2023-03-12 04:23] LABS: Urine Amorphous Crystal MOD /hpf (None Seen); Urine Bacteria NONE SEEN /hpf (None Seen); Urine Blood Negative /uL (Negative); Urine Clarity HAZY (Clear); Urine Color Yellow (Yellow); Urine Hyaline Cast MOD /lpf (0 - 2); Urine Mucus FEW (None Seen); Urine Protein, UAD TRACE (Negative); Urine Specific Gravity 1.017 (1.001-1.035); Urine Urobilinogen Normal (Negative); Urine WBC 2 /hpf (0 - 3)
[2023-03-12] MEDS ORDERED: LORazepam 0.5 MG TAB PO ONE ×2 (07:00→07:45)
[2023-03-12 07:48] VITALS: RESP 18
[2023-03-12 08:04] VITALS: BP 132/101; PULSE 92; RESP 18; TEMP 98.7; O2SAT 98
[2023-03-12] MEDS ORDERED: LEVALBUTEROL HCL 1.25 MG/3 ML NEB NEB PRN (08:30)
[2023-03-12] MEDS ORDERED: CHOLECALCIFEROL (VITD3) 2,000 UNIT CAP/TAB PO SCH (10:00)
[2023-03-12] MEDS ORDERED: dilTIAZem 120MG ER CAP PO SCH (10:00)
[2023-03-12] MEDS ORDERED: ASCORBIC ACID 500 MG TAB PO SCH (10:00)
[2023-03-12] MEDS ORDERED: PYRIDOXINE HCL 50 MG TAB PO SCH (10:00)
[2023-03-12] MEDS ORDERED: LOSARTAN POTASSIUM 50 MG TAB PO SCH (10:00)
[2023-03-12] MEDS ORDERED: METOPROLOL SUCCINATE XL 50 MG TAB PO SCH (10:00)
[2023-03-12] MEDS ORDERED: MAGNESIUM OXIDE 400 MG TAB PO SCH (10:00)
[2023-03-12] MEDS ORDERED: ESCI5TAB PO (10:30)
[2023-03-12] MEDS ORDERED: TRAZ-228 PO (10:30)
== END 2023-03-12 12:15 | disposition home or self-care (01) ==
LOC: ER 21:58
DX: R45.851 Suicidal ideations (principal); D75.89 Other specified diseases of blood and blood-forming organs; F12.10 Cannabis abuse, uncomplicated; J44.9 Chronic obstructive pulmonary disease, unspecified; I10 Essential (primary) hypertension
CPT/HCPCS: 36415; 80053; 80307; 80320; 80329; 81001; 83690; 83735; 85025; 93005; 96372; 99285; J1200; J1630

== ENCOUNTER 2023-03-15 15:18 | Emergency (ER) | payer MEDICAID ==
[~2023-03-15] VITALS: Ht 177.8 cm; Wt 80.0 kg
[~2023-03-15 15:18] MED LIST changes: +ESCI5TAB PO; +TRAZ-228 PO
[2023-03-15] MEDS ORDERED: MET50T PO (16:21)
[2023-03-15] MEDS ORDERED: METOPROLOL TARTRATE 25 MG TAB PO ONE (16:30)
[2023-03-15 16:52] VITALS: BP 154/78; PULSE 84; RESP 18; TEMP 98; O2SAT 99
== END 2023-03-15 17:17 | disposition home or self-care (01) ==
LOC: ER 15:18
DX: I10 Essential (primary) hypertension (principal); J44.9 Chronic obstructive pulmonary disease, unspecified; Z76.0 Encounter for issue of repeat prescription; Z88.6 Allergy status to analgesic agent

== ENCOUNTER 2023-04-04 02:02 | Inpatient (IN) | payer MEDICAID ==
[~2023-04-04] VITALS: Ht 177.8 cm; Wt 81.9 kg
[~2023-04-04 02:02] MED LIST changes: +MET50T PO
[2023-04-04] MEDS ORDERED: cefTRIAXone SOD 1,000 MG VL IM ONE (02:45)
[2023-04-04] MEDS ORDERED: BACDST PO ×2 (02:46)
[2023-04-04] MEDS ORDERED: CLIN-203 PO ×2 (02:46)
[2023-04-04] MEDS ORDERED: MUPI2OIN2 EX ×2 (02:46)
[2023-04-04] MEDS ORDERED: HYDR25CA PO ×2 (02:48)
[2023-04-04] MEDS ORDERED: diphenhdrAMINE HCL 25 MG CAP PO ONE (03:00)
[2023-04-04] MEDS ORDERED: DexAMETHasone SOD PHOS 10MG/1ML VIAL INJ IM ONE (03:00)
[2023-04-04 03:01] VITALS: RESP 16; O2SAT 96
[2023-04-04] MEDS: TETANUS-DIPTH-ACEL PERTUSSIS 0.5ML SYR Tdap IM ONE ×2 (03:15→05:08)
[2023-04-04 03:28] LABS: Basophils # (auto) 0.1 10 ^3/uL (0-0.2); Basophils % (auto) 0.7 % (0.0-2.0); Eosinophils # (auto) 0.2 10 ^3/uL (0-0.8); Eosinophils % (auto) 1.7 % (0.0-7.0); Hemoglobin 13.9 g/dL (13.5-17.5); Lymphocytes # (auto) 2.5 10 ^3/uL (0.4-5.4); Lymphocytes % (auto) 23.8 % (10.0-50.0); Mean Corpuscular Hemoglobin 34.1 pg (28.0-32.0); Mean Corpuscular Volume 100.2 fL (80.0-100.0); Monocytes # (auto) 1.4 10 ^3/uL (0-1.3); Monocytes % (auto) 13.5 % (0.0-12.0); Neutrophils # (auto) 6.4 10 ^3/uL (1.6-8.6); Neutrophils % (auto) 60.3 % (37.0-80.0); Red Blood Cells 4.09 10^6/uL (4.5-5.90); Red Cell Distribution Width 13.3 % (11.8-14.3); White Blood Cell 10.7 10^3/uL (4.4-10.8)
[2023-04-04 03:48] LABS: Alanine Aminotransferase 26 U/L (7-40); Albumin 4.4 g/dL (3.2-4.8); Alkaline Phosphatase 59 U/L (46-116); Anion Gap 8 (5-15); Aspartate Aminotransferase 20 U/L (13-40); BUN/Creatinine Ratio 15.7 (10.0-20.0); Bilirubin, Total 0.5 mg/dL (0.2-1.0); Blood Urea Nitrogen 18 mg/dL (9-23); Calcium 9.6 mg/dL (8.5-10.1); Carbon Dioxide 25 mmol/L (20-30); Chloride 102 mmol/L (98-107); Glucose 112 mg/dL (74-106); Potassium 3.7 mmol/L (3.5-5.1); Sodium 135 mmol/L (136-145); Total Protein 6.4 g/dL (5.7-8.2)
[2023-04-04] MEDS ORDERED: HYDROcodone-ACET 5/325MG TAB PO PRN (06:30)
[2023-04-04] MEDS ORDERED: diphenhdrAMINE-ZINC ACETATE 1 APPLIC APPL TOP PRN (06:30)
[2023-04-04] MEDS ORDERED: ACETAMINOPHEN 325 MG TAB PO PRN (06:30)
[2023-04-04] MEDS ORDERED: ONDANSETRON HCL 4 MG/2 ML VIAL IV PRN (06:30)
[2023-04-04] MEDS ORDERED: LEVALBUTEROL HCL 1.25 MG/3 ML NEB ONE (08:26)
[2023-04-04 08:28] VITALS: PULSE 77; RESP 14; O2SAT 96
[2023-04-04 10:02] VITALS: BP 133/89; PULSE 75; RESP 18; TEMP 98.5; O2SAT 98
[2023-04-04] MEDS: LOSARTAN POTASSIUM 50 MG TAB PO SCH (10:11)
[2023-04-04] MEDS: METOPROLOL SUCCINATE XL 50 MG TAB PO SCH (10:12)
[2023-04-04 11:25] LABS: Hepatitis B Surface Antigen Negative (Negative)
[2023-04-04 11:46] LABS: Hepatitis C Antibody Negative (Negative)
[2023-04-04] MEDS ORDERED: LEVALBUTEROL HCL 1.25 MG/3 ML NEB NEB SCH ×2 (12:00→18:00)
[2023-04-04 12:12] VITALS: BP 103/65; PULSE 63; RESP 18; TEMP 98.1; O2SAT 97
[2023-04-04] MEDS: CLINDAMYCIN 600MG IV 50 ML IV SCH ×2 (14:25→21:03)
[2023-04-04 16:00] VITALS: BP 112/72; PULSE 81; RESP 20; TEMP 98.7; O2SAT 98
[2023-04-04] MEDS ORDERED: LEVA1.2518 NEB (16:48)
[2023-04-04 21:57] VITALS: BP 100/64; PULSE 68; RESP 14; TEMP 98.8; O2SAT 98
[2023-04-05 05:00] VITALS: BP 118/72; PULSE 81; RESP 16; TEMP 98.2; O2SAT 97
[2023-04-05] MEDS: CLINDAMYCIN 600MG IV 50 ML IV SCH ×2 (06:13→15:30)
[2023-04-05 06:19] LABS: Basophils # (auto) 0 10 ^3/uL (0-0.2); Basophils % (auto) 0.1 % (0.0-2.0); Eosinophils # (auto) 0 10 ^3/uL (0-0.8); Hemoglobin 13.8 g/dL (13.5-17.5); Lymphocytes # (auto) 1.1 10 ^3/uL (0.4-5.4); Mean Corpuscular Hgb Conc. 33.8 g/dL (32.0-36.0); Nucleated Red Blood Cells % 0.1 %
[2023-04-05 06:21] LABS: Hematocrit 40.9 % (41.0-53.0); Lymphocytes % (auto) 10.4 % (10.0-50.0); Mean Corpuscular Hemoglobin 34.3 pg (28.0-32.0); Mean Corpuscular Volume 101.7 fL (80.0-100.0); Neutrophils # (auto) 8.3 10 ^3/uL (1.6-8.6); Neutrophils % (auto) 79.5 % (37.0-80.0); Red Blood Cells 4.02 10^6/uL (4.5-5.90); Red Cell Distribution Width 13.7 % (11.8-14.3); White Blood Cell 10.4 10^3/uL (4.4-10.8)
[2023-04-05 06:48] LABS: Chloride 111 mmol/L (98-107); Potassium 3.8 mmol/L (3.5-5.1); Sodium 140 mmol/L (136-145)
[2023-04-05 06:49] LABS: Anion Gap 7 (5-15); Carbon Dioxide 22 mmol/L (20-30)
[2023-04-05 06:54] LABS: BUN/Creatinine Ratio 13.2 (10.0-20.0); Blood Urea Nitrogen 10 mg/dL (9-23); Glucose 114 mg/dL (74-106)
[2023-04-05 08:00] VITALS: BP 108/78; PULSE 81; RESP 20; TEMP 98.2; O2SAT 97
[2023-04-05] MEDS: LOSARTAN POTASSIUM 50 MG TAB PO SCH (09:45)
[2023-04-05] MEDS: METOPROLOL SUCCINATE XL 50 MG TAB PO SCH (09:46)
[2023-04-05] MEDS ORDERED: PATIENTS OWN MEDICATION (Diltiazem Hcl (Diltiazem Hcl Er) 1 CAP) PO SCH (10:00)
[2023-04-05] MEDS ORDERED: dilTIAZem 120MG ER CAP PO SCH (10:00)
[2023-04-05 12:00] VITALS: BP 121/74; PULSE 74; RESP 20; TEMP 99.8; O2SAT 97
[2023-04-05 14:53] VITALS: BP 121/74; PULSE 81; RESP 20; TEMP 36.8; O2SAT 97
[2023-04-05] MEDS ORDERED: traZODone HCL 50 MG TAB PO SCH (18:00)
[2023-04-05] MEDS ORDERED: PATIENTS OWN MEDICATION (Trazodone Hcl 1 TAB) PO SCH (18:00)
[2023-04-05] MEDS ORDERED: OXcarbazepine 300 MG TAB PO SCH (22:00)
== END 2023-04-05 15:28 | disposition home or self-care (01) | DRG 53 ==
LOC: ER 02:02 → OVERFLOW 06:17 → EAST 09:45
PROVIDERS: ADMIT Internal Medicine Geriatric Medicine; ATTEND Internal Medicine
DX: G40.409 Other generalized epilepsy and epileptic syndromes, not intractable, without status epilepticus (principal); F32.A Depression, unspecified; R21 Rash and other nonspecific skin eruption; I10 Essential (primary) hypertension; L73.9 Follicular disorder, unspecified; J44.9 Chronic obstructive pulmonary disease, unspecified; L03.90 Cellulitis, unspecified; G47.00 Insomnia, unspecified; S60.812A Abrasion of left wrist, initial encounter; W18.39XA Other fall on same level, initial encounter; Y93.89 Activity, other specified; Z79.899 Other long term (current) drug therapy; Z88.8 Allergy status to other drugs, medicaments and biological substances; Z82.49 Family history of ischemic heart disease and other diseases of the circulatory system; Y92.89 Other specified places as the place of occurrence of the external cause; Y99.8 Other external cause status
CPT/HCPCS: 36415; 70450; 70551; 72125; 73110; 80048; 80053; 84484; 85025; 86803; 87040; 87081; 87340; 90715; 95819; 96372; G0378; J0696; J1100; J3490

== ENCOUNTER → 2023-06-13 | Outpatient (CLI) | payer MEDICAID ==
[~2023-06-13] MED LIST changes: +LEVALBUTEROL HCL 1.25 MG/3 ML NEB ONE
== END | disposition home or self-care (01) ==
LOC: RT 08:51
PROVIDERS: ATTEND Internal Medicine Pulmonary Disease
DX: J44.9 Chronic obstructive pulmonary disease, unspecified (principal)
CPT/HCPCS: 94060; 94727; 94729; J7612